=== PATIENT | female | born 1965 | race Caucasian/White ===

== ENCOUNTER 2018-01-22 17:50 | Emergency (ER) | payer OTHER ==
[~2018-01-22] VITALS: Ht 157.5 cm; Wt 86.2 kg
[2018-01-22] MEDS ORDERED: NORVASC10 MG (18:04)
[2018-01-22] MEDS ORDERED: TOPROL XL25 MG (18:04)
[2018-01-22] MEDS ORDERED: LASIX20 MG (18:05)
[2018-01-22] MEDS ORDERED: HYDRALAZINE HCL25 MG (18:05)
[2018-01-22] MEDS ORDERED: LOSARTAN-HCTZ1 EAC2 (18:05)
== END 2018-01-22 20:26 | disposition home or self-care (01) ==
LOC: ER 17:50 → EMR PED 17:59 → ER 17:59
DX: J06.9 Acute upper respiratory infection, unspecified (principal)

== ENCOUNTER 2018-02-04 15:06 | Emergency (ER) | payer OTHER ==
[~2018-02-04] VITALS: Ht 157.5 cm; Wt 86.2 kg
[~2018-02-04 15:06] MED LIST: HYDRALAZINE HCL25 MG; LASIX20 MG; LOSARTAN-HCTZ1 EAC2; NORVASC10 MG; TOPROL XL25 MG
[2018-02-04] MEDS ORDERED: IBUPROFEN800 MG PO (21:05)
== END 2018-02-04 21:15 | disposition home or self-care (01) ==
LOC: ER 15:06
DX: S20.211A Contusion of right front wall of thorax, initial encounter (principal); S80.02XA Contusion of left knee, initial encounter; W18.39XA Other fall on same level, initial encounter; Y93.89 Activity, other specified; Y92.098 Other place in other non-institutional residence as the place of occurrence of the external cause; Y99.8 Other external cause status

== ENCOUNTER 2018-11-08 23:53 | Emergency (ER) | payer OTHER ==
[~2018-11-08] VITALS: Ht 157.5 cm; Wt 86.2 kg
[~2018-11-08 23:53] MED LIST changes: +IBUPROFEN800 MG PO
[2018-11-09] MEDS ORDERED: NORFLEX100MG PO (03:00)
[2018-11-09] MEDS ORDERED: KETO10TA2 PO (03:00)
== END 2018-11-09 04:22 | disposition home or self-care (01) ==
LOC: ER 23:53
DX: M62.838 Other muscle spasm (principal); M54.5 Low back pain

== ENCOUNTER 2021-08-22 10:53 | Emergency (ER) | payer OTHER ==
[~2021-08-22] VITALS: Ht 157.5 cm; Wt 87.1 kg
[~2021-08-22 10:53] MED LIST changes: +KETO10TA2 PO; +NORFLEX100MG PO
[2021-08-22] MEDS ORDERED: TESSALON PERLE100 M1 PO (14:56)
[2021-08-22] MEDS ORDERED: ZITHROMAX TRI-500 MG PO (14:56)
[2021-08-22] MEDS ORDERED: CLARITIN10 MG PO (15:02)
== END 2021-08-22 15:07 | disposition home or self-care (01) ==
LOC: ER 10:53
DX: B34.9 Viral infection, unspecified (principal); R53.81 Other malaise; R09.81 Nasal congestion; R51.9 Headache, unspecified

== ENCOUNTER 2022-12-20 15:03 | Emergency (ER) | payer OTHER ==
[~2022-12-20] VITALS: Ht 157.5 cm; Wt 90.7 kg
[~2022-12-20 15:03] MED LIST changes: +CLARITIN10 MG PO; +TESSALON PERLE100 M1 PO; +ZITHROMAX TRI-500 MG PO
[2022-12-20] MEDS ORDERED: DICLOFENAC SODI75 MG PO (16:25)
== END 2022-12-20 17:38 | disposition home or self-care (01) ==
LOC: ER 15:03
DX: M25.572 Pain in left ankle and joints of left foot (principal); I10 Essential (primary) hypertension

== ENCOUNTER 2023-04-30 15:28 | Emergency (ER) | payer OTHER ==
[~2023-04-30] VITALS: Ht 157.5 cm; Wt 90.7 kg
[~2023-04-30 15:28] MED LIST changes: +DICLOFENAC SODI75 MG PO
== END 2023-04-30 20:29 | disposition home or self-care (01) ==
LOC: ER 15:28
DX: M62.838 Other muscle spasm (principal); I10 Essential (primary) hypertension

== ENCOUNTER 2024-10-30 23:55 | Emergency (ER) | payer OTHER ==
[~2024-10-30] VITALS: Ht 157.5 cm; Wt 86.2 kg
[2024-10-31] MEDS ORDERED: KETOROLAC TROMETHAMINE 60 MG VIAL IM STA (04:54)
[2024-10-31] MEDS ORDERED: OxyCODONE HCL/APAP UD (PERCOCET) PO STA (04:54)
[2024-10-31] MEDS ORDERED: KETOROLAC TROMETHAMINE 60 MG VIAL IM ONE (05:08)
== END 2024-10-31 05:52 | disposition home or self-care (01) ==
LOC: ER 23:58 → EMR PED 10-31 01:57 → ER 10-31 05:52
DX: S80.02XA Contusion of left knee, initial encounter (principal); W01.0XXA Fall on same level from slipping, tripping and stumbling without subsequent striking against object, initial encounter; Y93.89 Activity, other specified; Y92.018 Other place in single-family (private) house as the place of occurrence of the external cause; S83.8X2A Sprain of other specified parts of left knee, initial encounter; M77.32 Calcaneal spur, left foot
CPT/HCPCS: 73560; 73600; 73620; 96372; 99283; J1885